=== PATIENT | male | born 1960 | race African-American/Black ===

== ENCOUNTER 2019-07-05 03:36 | Emergency (ER) | payer BC ==
[2019-07-05 04:43] LABS: #Basophils 0.1 thou/uL (0.0-0.2); #Eosinphils 0.1 thou/uL (0.0-0.7); #Lymphocytes 1.1 thou/uL (1.20-3.40); #Monocytes 0.5 thou/uL (0.11-0.59); #Neutrophils 5.1 thou/uL (1.40-6.50); %Basophils 1.1 % (0.0-1.0); %Eosinophils 0.9 % (0.0-10.0); %Lymphocytes 15.6 % (21.0-51.0); %Neutrophils 75.4 % (42.0-75.0); Hemoglobin 12.9 g/dL (14.0-18.0); Mean Corpuscular HGB CONC 31.7 g/dL (32.0-36.0); Mean Corpuscular Hemoglobin 27.1 pg (27.0-31.0); Mean Corpuscular Volume 85.3 fL (78.0-98.0); Mean Platelet Volume 7.3 fL (7.4-10.4); Platelet Count 208 thou/uL (130-400); Red Blood Cell (RBC) Count 4.77 mill/uL (4.70-6.10); White Blood Cell (WBC) Count 6.7 thou/uL (4.8-10.8)
[2019-07-05 04:51] LABS: Bacteria/HPF None Seen HPF (None Seen); Bilirubin Negative (Negative); Blood, Urine Negative (Negative); Clarity Clear (Clear); Glucose, Urine (Dipstick) Normal (Negative); Leukocyte Negative Leu/uL (Negative); Nitrite Negative (Negative); Protein, Urine (Dipstick) 100 mg/dL (Neg-Trace); RBC/HPF 0-3 HPF (0-3); Squamous Epithelial None Seen HPF (0-3); WBC/HPF 0-3 HPF (0-3)
[2019-07-05 05:08] LABS: ALT (SGPT) 20 U/L (8-55); AST (SGOT) 17 U/L (5-34); Albumin 4.4 g/dL (3.5-5.0); Alkaline Phosphatase 64 U/L (40-110); Anion Gap 13 mmol/L (10-20); BUN (Urea Nitrogen) 14 mg/dL (8.4-25.7); Bilirubin, Total 0.2 mg/dL (0.2-1.2); Calc. Creatinine Clearance 0 mL/min (70-130); Calcium 9.4 mg/dL (7.8-10.44); Carbon Dioxide 27 mmol/L (22-29); Chloride 102 mmol/L (98-107); Estimated GFR-MDRD 46; Globulin 3.2 g/dL (2.4-3.5); Glucose 242 mg/dL (70-105); Potassium 3.3 mmol/L (3.5-5.1); Protein, Total 7.6 g/dL (6.0-8.3); Sodium 139 mmol/L (136-145)
--- NOTE | 2019-07-05 07:30 | CT ---
CT ABDOMEN AND PELVIS WITH IV CONTRAST: Date: 07/05/2019 INDICATION: History of right-sided abdominal pain since 0200 hours this morning. COMPARISON: None. FINDINGS: There is a calcified granuloma in the lingula. There is subsegmental volume loss within the left lung base. No focal hepatic lesion is evident. The gallbladder is mildly folded. Pancreas and adrenal glands are normal appearing. Spleen is normal appearing. Kidneys demonstrate no hydronephrosis. There are bilateral renal cysts. There is a 4.4 cm cyst in the superior pole of the right kidney. There are small, subcentimeter cysts within the right kidney. The re is a 4.5 cm posterior left mid renal cyst. There is a 4.8 cm inferior pole left renal cyst. No free fluid or enlarged lymph nodes are evident. There is a normal appendix in the right lower quadrant. There is a mild amount of retained stool with in the colon. Visualized bladder, prostate, rectum, and perirectal soft tissues appear within normal limits. No enl arged lymph nodes or free fluid identified. There is postsurgical change involving the lower lumbar spine consistent with laminectomies at L4-5 a nd L5-S1. There is multilevel spondylosis of the lumbar spine. No definite acute osseous abnormality is evident. IMPRESSION: 1. No CT explanation for the patient's right-sided abdominal pain. 2. Bilateral renal cysts. 3. Moderate amount of retain stool within the colon. POS: BH
[2019-07-05] MEDS ORDERED: Iopamidol-370 76% 500 ML 1 ML ONE (15:14)
== END 2019-07-05 07:48 | disposition home or self-care (01) ==
LOC: ERS 03:36
DX: R10.9 Unspecified abdominal pain (principal); R10.813 Right lower quadrant abdominal tenderness; I10 Essential (primary) hypertension; Z79.899 Other long term (current) drug therapy
CPT/HCPCS: 36415; 74177; 80053; 81003; 81015; 85025; 96360; Q9967